=== PATIENT | male | born 2000 | race Hispanic/Latino ===

== ENCOUNTER 2019-07-16 10:50 | Emergency (ER) | payer OTHER ==
[~2019-07-16] VITALS: Ht 177.8 cm; Wt 79.2 kg
[2019-07-16 10:51] VITALS: BP 137/62
== END 2019-07-16 12:15 | disposition home or self-care (01) ==
LOC: M ED 10:50
DX: Z04.1 Encounter for examination and observation following transport accident (principal); F17.210 Nicotine dependence, cigarettes, uncomplicated